=== PATIENT | female | born 2000 | race Two or more races ===

== ENCOUNTER 2020-10-16 19:39 | Emergency (ER) | payer OTHER ==
[~2020-10-16] VITALS: Ht 157.5 cm; Wt 120.6 kg
[2020-10-16 19:46] VITALS: BP 136/73
[2020-10-16] MEDS ORDERED: ACETAMINOPHEN 500 MG TABLET ONE (19:55)
[2020-10-16] MEDS ORDERED: DEXAMETHASONE 4 MG/ML, 1ML ONE (19:55)
[2020-10-16] MEDS ORDERED: ACETAMINOPHEN 500 MG TABLET PO ONE (20:00)
[2020-10-16] MEDS ORDERED: DEXAMETHASONE 4 MG/ML, 1ML PO ONE (20:00)
== END 2020-10-16 20:06 | disposition home or self-care (01) ==
LOC: ED 20:00
DX: J02.0 Streptococcal pharyngitis (principal); R00.0 Tachycardia, unspecified
CPT/HCPCS: 99283; J1100